=== PATIENT | male | born 1975 | race Caucasian/White ===

== ENCOUNTER 2018-11-12 05:25 | Day surgery (SDC) | payer MEDICARE, MEDICAID ==
[2018-11-12] MEDS ORDERED: Acetaminophen 500 MG Tab PO ONE (05:49)
[2018-11-12] MEDS ORDERED: ceFAZolin 2 GM in Premix Bag 1 BAG IV ONE ×2 (06:00→07:30)
[2018-11-12] MEDS ORDERED: Dextrose 5%-Lactated Ringers 1,000 ML IV SCH (06:30)
[2018-11-12] MEDS ORDERED: Bupivacaine 0.5%/EPINEPHrine 1:200,000 50 ML MDV ONE (06:50)
[2018-11-12] MEDS ORDERED: Meropenem 500 MG SDV ONE (06:50)
[2018-11-12] MEDS ORDERED: fentaNYL 250 MCG/5 ML SDV ONE ×2 (07:08→09:05)
[2018-11-12] MEDS ORDERED: Propofol 200 MG/20 ML SDV ONE (07:09)
[2018-11-12] MEDS ORDERED: Dexamethasone 4 MG/ML SDV ONE (07:09)
[2018-11-12] MEDS ORDERED: Rocuronium 50 MG/5 ML Vial ONE (07:09)
[2018-11-12] MEDS ORDERED: Succinylcholine 200 MG/10 ML MDV ONE (07:09)
[2018-11-12] MEDS ORDERED: Ondansetron 4 MG/2 ML SDV ONE (07:09)
[2018-11-12] MEDS ORDERED: Glycopyrrolate 0.2 MG/ML 5 ML MDV ONE (07:09)
[2018-11-12] MEDS ORDERED: Neostigmine Methylsulfate 1 MG/ML 5 ML Syringe ONE (07:09)
[2018-11-12] MEDS ORDERED: Ropivacaine 58 ML, Dexamethasone 8 MG, EPINEPHrine 0.4 MG, Sodium Chloride 0.9% 19.6 ML NERVRT SCH ×4 (07:30)
[2018-11-12] MEDS ORDERED: Lactated Ringers 1,000 ML ONE (09:05)
[2018-11-12] MEDS ORDERED: hydrOXYzine HCl 100 MG/2 ML SDV IM ONE (09:40)
[2018-11-12] MEDS ORDERED: Ketorolac 60 MG/2 ML SDV ONE (09:45)
[2018-11-12] MEDS: Dextrose 5%-Lactated Ringers 1,000 ML IV SCH ×2 (11:00→18:09)
[2018-11-12] MEDS ORDERED: Ondansetron 4 MG/2 ML SDV IVPUSH PRN (11:13)
[2018-11-12] MEDS ORDERED: hydrOXYzine HCl 100 MG/2 ML SDV IM PRN (11:13)
[2018-11-12] MEDS ORDERED: Zolpidem 5 MG Tab PO PRN (11:16)
[2018-11-12] MEDS: ceFAZolin 2 GM in Premix Bag 1 BAG IV SCH ×2 (14:24→21:08)
[2018-11-12] MEDS: HYDROmorphone 1 MG/ML Syringe IV PRN (14:28)
[2018-11-12] MEDS: Baclofen 10 MG Tab PO SCH ×2 (15:03→21:13)
[2018-11-12] MEDS: Pregabalin 100 MG Cap PO SCH ×2 (15:06→21:12)
[2018-11-12] MEDS: Acetaminophen/oxyCODONE 325-10 MG Tab PO PRN ×2 (17:07→21:06)
[2018-11-12] MEDS ORDERED: Tamsulosin 0.4 MG Cap.ER PO SCH (21:00)
[2018-11-13] MEDS: Dextrose 5%-Lactated Ringers 1,000 ML IV SCH ×2 (01:24→09:19)
[2018-11-13] MEDS: Acetaminophen/oxyCODONE 325-10 MG Tab PO PRN ×4 (01:26→12:29)
[2018-11-13] MEDS: ceFAZolin 2 GM in Premix Bag 1 BAG IV SCH (05:36)
[2018-11-13] MEDS: HYDROmorphone 1 MG/ML Syringe IV PRN (05:45)
[2018-11-13] MEDS: Baclofen 10 MG Tab PO SCH (06:10)
[2018-11-13] MEDS: Pregabalin 100 MG Cap PO SCH (08:23)
[2018-11-13] MEDS ORDERED: Losartan 50 MG Tab PO SCH (09:00)
[2018-11-13] MEDS: HYDROmorphone 2 MG Tab PO PRN ×2 (09:42→12:48)
--- NOTE | 2018-11-14 04:40 | DISCH ---
ADMISSION DIAGNOSES: Incisional umbilical and incarcerated incisional hernia. DISCHARGE DIAGNOSES: Diagnostic laparoscopy with lysis of extensive adhesions and repair of incarcerated umbilical hernia and incarcerated incisional hernia and extensive intra- abdominal adhesions. DATE OF SURGERY: 11/12/2018. SURGEON: Warner Alonzo MD. HISTORY: Tye Maciel is a 43-year-old male with incarcerated umbilical and incarcerated incisional hernia. After preoperative evaluation and discussion of possible risks and possible complications, he wished to proceed with surgical procedure. HOSPITAL COURSE: Tye had his surgery on 11/12/2018. He had no operative complications. On postop day 1, his vital signs were stable. His pain was managed, and oral intake and output were adequate, and he was able to be discharged to home. PHYSICAL EXAMINATION: GENERAL: Tye is a 43-year-old male. VITAL SIGNS: Height is 6 feet 1 inch, weight is 255 pounds. BMI is 33. TPR 97.6, 59, 16, blood pressure 109/53. HEENT: Negative. NECK: Supple. HEART: Regular rate and rhythm. LUNGS: Clear. ABDOMEN: Dressings dry and intact. Abdominal binder is on. EXTREMITIES: Without peripheral edema. DISPOSITION: Discharged to home. CONDITION: Stable and improving. FOLLOWUP: Followup appointment with Warner Alonzo MD, at [facility] on 11/20/2018 at 11 a.m. HOME MEDICATIONS: 1. Dilaudid 2 mg 1 q.4 hours p.r.n. severe pain, #12. 2. Milk of magnesia 30 mL, 2 were sent home with the patient. He is to resume his home medications. Percocet 10/325 mg 0.5 tabs every 2 hours, Ambien 10 mg p.o. at bedtime p.r.n., Lyrica 200 mg p.o. t.i.d., Narcan 4 mg as directed p.r.n., Avapro or irbesartan 150 mg p.o. daily, vitamin B12, 1000 mcg subcu as directed, baclofen 20 mg p.o. q.8 hours, milk of magnesia. DIET: Regular diet. Drink 8 to 10 glasses of water a day. ACTIVITY: No lifting greater than 10 pounds for 4 weeks. Activity, walk at least 6 times daily. Driving: Do not drive for 1 week and while on narcotic pain medication. Shower/bathing, may shower. Wound incision care, keep site clean and dry. Wear abdominal binder for 4 weeks with pressure dressing over hernia site. Notify provider if any fever, increased pain, nausea, or vomiting. Use incentive spirometer 10 times every hour while awake.
--- NOTE | 2018-11-18 08:51 | OR ---
DATE OF PROCEDURE: 11/12/2018 SURGEON: Warner Alonzo MD PREOPERATIVE DIAGNOSIS: Incarcerated incisional and umbilical hernias. POSTOPERATIVE DIAGNOSES: 1. Incarcerated incisional and umbilical hernias. 2. Extensive intraabdominal adhesions. OPERATIVE PROCEDURES: Diagnostic laparoscopy with lysis of extensive adhesions and: 1. Repair of incarcerated umbilical hernia with mesh (74257). 2. Repair of incarcerated incisional hernia with mesh (92274). 3. Placement of Vicryl mesh to displace pelvic and abdominal wall from underlying viscera to limit recurrent adhesion formation (67844). ANESTHESIA: General. COMMODITY MANAGEMENT SPECIALIST: DARNELL Stephens. INDICATION FOR PROCEDURE: This is a 43-year-old presenting with 2 hernias, one was incisional hernia located in the area roughly a handsbreadth above the umbilicus and second hernia near umbilicus. Both of these are not entirely reducible. Plan is to proceed with laparoscopic or if necessary open repair with mesh. Potential risks of the procedure including bleeding, infection, injury to underlying viscera, possible recurrence of the hernia, or mesh becoming infected were all reviewed, and the patient wishes to proceed. DETAILS OF PROCEDURE: The patient was taken to the operating room and placed in a supine position. After general endotracheal anesthesia was induced, a Ramos catheter was inserted and the abdomen prepped and draped. In the left lateral abdomen, a transverse incision was made and peritoneal cavity entered under direct vision with an Optiview trocar, inflated to 15 mmHg pressure with CO2. Laparoscope was reinserted. No underlying trocar insertion site injuries were seen. Once the peritoneal cavity was inflated, bilateral transversus abdominis plane blocks were placed, and following that, 4 additional trocars were placed. These were all being 5 mm trocars, 2 on the right and 2 on the left side of the abdomen. There were quite extensive adhesions between the omentum and transverse colon and the anterior abdominal wall. These were taken down with Harmonic scalpel with care taken to avoid placing any significant heat over the area of the colon. Once these were reduced, the 2 hernias were confirmed, both of which contained some incarcerated omentum. Using external pressure and Harmonic scalpel dissection, the hernias were reduced and the hernia sacs partially resected in each case. A single Ventralight ST mesh was then selected, after measuring out the area of herniation. This was a 20 x 25 cm mesh. Two sutures were placed at the ends of the long axis of the mesh on the polypropylene side, and the mesh soaked in antibiotic-containing saline solution and placed into the intraperitoneal location. Three stab wounds were made where the sutures were to be pulled up, as well as the inflation catheter, and those were then pulled up to orient the mesh in general orientation. The mesh was oriented such that the long axis was in the midline. This provided very wide coverage around the areas of hernia. Once this mesh was pulled up, the balloon was inflated and the mesh was fixed circumferentially with 2 rows of absorbable tacking screws. One at the far edge of the circumference and another layer somewhat inside of that, and at that point, balloon catheter was deflated and withdrawn, and the hernia repair was inspected and found to be satisfactory. The trocars were then removed. The fascia at 12 mm site was closed with 0 Vicryl stitch, and the skin at each incision with 4-0 Vicryl skin stitch. Dressing was applied. The patient was taken to the recovery room in satisfactory condition. One additional aspect of this case was, to avoid recurrent adhesion formation between the viscera and the pelvic and abdominal wall, a 12-inch square Vicryl mesh was placed behind the urinary bladder along the pelvic sidewalls, up against the abdominal wall, including overlying the area of mesh, and at that point, the above-noted closure was completed. The patient was taken to the recovery room in satisfactory condition. Warner Alonzo MD /[id number]
== END 2018-11-13 13:30 | disposition home or self-care (01) ==
LOC: JP.SDS 05:25 → JP.MS 09:35 → JP.SDS 11-13 13:30
PROVIDERS: ATTEND Surgery
DX: K43.0 Incisional hernia with obstruction, without gangrene (principal); K42.0 Umbilical hernia with obstruction, without gangrene; K66.0 Peritoneal adhesions (postprocedural) (postinfection); E53.8 Deficiency of other specified B group vitamins; I10 Essential (primary) hypertension; F41.1 Generalized anxiety disorder; F33.1 Major depressive disorder, recurrent, moderate; M54.5 Low back pain; F13.20 Sedative, hypnotic or anxiolytic dependence, uncomplicated; F11.29 Opioid dependence with unspecified opioid-induced disorder; E66.9 Obesity, unspecified; Z68.34 Body mass index [BMI] 34.0-34.9, adult; Z23 Encounter for immunization; Z01.818 Encounter for other preprocedural examination; Z79.891 Long term (current) use of opiate analgesic; Z79.899 Other long term (current) drug therapy; Z88.5 Allergy status to narcotic agent; Z87.891 Personal history of nicotine dependence; Z88.1 Allergy status to other antibiotic agents
CPT/HCPCS: 49653; 49655; 88302; 94762; A9270; C1781; J0171; J0330; J0690; J1100; J1170; J1885; J2020; J2185; J2405; J2704; J2710; J2795; J3010; J3410; J3490; J7042; J7050; J7120

== ENCOUNTER 2019-08-19 06:47 | Day surgery (SDC) | payer MEDICARE, MEDICAID ==
[2019-08-19] MEDS ORDERED: Sodium Chloride 0.9% 1,000 ML IV SCH (07:00)
[2019-08-19] MEDS ORDERED: Midazolam 1 MG/ML 2 ML SDV ONE (07:22)
[2019-08-19] MEDS ORDERED: Propofol 200 MG/20 ML SDV ONE (07:22)
[2019-08-19] MEDS ORDERED: fentaNYL 100 MCG/2 ML SDV ONE (07:22)
--- NOTE | 2019-08-19 09:54 | PROC ---
DATE OF PROCEDURE: 08/19/2019 SURGEON: Lev Talavera MD PROCEDURE: Colonoscopy. PREPROCEDURE DIAGNOSIS: History of colon polyps. POSTPROCEDURE DIAGNOSES: 1. History of colon polyps. 2. Sigmoid diverticulosis. 3. 0.3 cm rectal polyp, removed using snare. PROCEDURE IN DETAIL: Risks and goals of the procedure were reviewed with the patient, who gave informed consent to proceed. He was brought back to the endoscopy room. Sedation monitoring provided by Mr. Jones from the Anesthesia Service. Time-out was held prior to the procedure to confirm right patient, right procedure, and identified significant safety concerns, of which there were none. The patient was placed in a left lateral decubitus position. After adequate sedation was achieved, digital rectal exam was performed, which was unremarkable. Following this, the flexible colonoscope was placed and advanced out through the length of the colon to the cecum. Scope was then slowly withdrawn back through the length of the colon to the rectum where it was retroflexed, straightened, and removed. He was noted to have a few scattered sigmoid diverticula. There was a 0.3 cm polyp present in the rectum, which was removed using cold snare. Procedure was otherwise completed without complication. He will be monitored in PAR in outpatient area until fully recovered from IV sedation. Pathologic review of the biopsy specimen is pending at the time of this dictation. Lev Talavera MD /[id number]
--- NOTE | 2019-08-27 07:51 | LETTER ---
08/26/2019 Mr. Tye Maciel [address] [place] [id number] RE: JENNIFER TYEEmerald SPARKS : 1975 Dear Mr. Maciel: This letter concerns pathology results from the polyp removed at the time of your colonoscopy last week. 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 This is a benign or noncancerous polyp, but is the type that over several years could evolve into a colon cancer. For this reason, I recommend that you have a followup colonoscopy again in 5 years. If you have any questions concerning these results or recommendations, please feel free to contact me. Sincerely, /[id number]
== END 2019-08-19 09:15 | disposition home or self-care (01) ==
LOC: JP.SDS 06:47
PROVIDERS: ATTEND Hospitalist
DX: Z12.11 Encounter for screening for malignant neoplasm of colon (principal); D12.8 Benign neoplasm of rectum; K57.30 Diverticulosis of large intestine without perforation or abscess without bleeding; I10 Essential (primary) hypertension; E66.9 Obesity, unspecified; Z86.010 Personal history of colon polyps; Z88.5 Allergy status to narcotic agent; Z88.1 Allergy status to other antibiotic agents; Z68.35 Body mass index [BMI] 35.0-35.9, adult
CPT/HCPCS: 45385; J2250; J2704; J3010; J7030; 88305

== ENCOUNTER 2024-10-23 06:24 | Day surgery (SDC) | payer MEDICARE, MEDICAID ==
[2024-10-23] MEDS ORDERED: Bupivacaine 0.5% 50 ML MDV ONE (07:04)
[2024-10-23] MEDS ORDERED: Lidocaine 1% with EPINEPHrine 1:100,000 50 ML MDV ONE (07:04)
[2024-10-23] MEDS ORDERED: fentaNYL 250 MCG/5 ML SDV ONE (07:18)
[2024-10-23] MEDS ORDERED: Neostigmine Methylsulfate 10 MG/10 ML MDV ONE (07:19)
[2024-10-23] MEDS ORDERED: Rocuronium 50 MG/5 ML Vial ONE ×2 (07:19→09:12)
[2024-10-23] MEDS ORDERED: Glycopyrrolate 0.2 MG/ML 5 ML MDV ONE (07:19)
[2024-10-23] MEDS ORDERED: Ondansetron 4 MG/2 ML SDV ONE (07:19)
[2024-10-23] MEDS ORDERED: Dexamethasone 4 MG/ML SDV ONE (07:19)
[2024-10-23] MEDS ORDERED: Propofol 200 MG/20 ML SDV ONE (07:19)
[2024-10-23] MEDS ORDERED: Succinylcholine 200 MG/10 ML MDV ONE (07:19)
[2024-10-23] MEDS: Lactated Ringers 1,000 ML IV SCH (07:35)
[2024-10-23] MEDS: ceFAZolin 2 GM in Premix Bag 1 BAG IV ONE (07:57)
[2024-10-23] MEDS: Bupivacaine 0.5%/EPINEPHrine 1:200,000 50 ML MDV ONE (08:30)
[2024-10-23] MEDS ORDERED: Lactated Ringers 1,000 ML ONE (08:50)
[2024-10-23] MEDS ORDERED: fentaNYL 100 MCG/2 ML SDV ONE ×2 (09:54→10:06)
[2024-10-23] MEDS: hydrOXYzine HCL 100 MG/2 ML SDV IM ONE (10:22)
[2024-10-23] MEDS: HYDROmorphone 0.5 MG/0.5 ML Syringe IVPUSH PRN (11:25)
[2024-10-23] MEDS: Acetaminophen/oxyCODONE 325-10 MG Tab PO PRN (12:03)
== END 2024-10-23 12:15 | disposition home or self-care (01) ==
LOC: JP.SDS 06:24
PROVIDERS: ATTEND Surgery
DX: K43.0 Incisional hernia with obstruction, without gangrene (principal)
CPT/HCPCS: 00790; A9270; J0171; J0330; J0690; J1100; J1596; J2405; J2704; J2710; J2795; J3010; J3410; J3490; J7120; J0665